=== PATIENT | male | born 1950 | race Caucasian/White ===

== ENCOUNTER → 2019-02-23 | Outpatient (CLI) | payer BC, OTHER ==
[~2019-02-23] VITALS: Ht 182.9 cm; Wt 97.5 kg
[~2019-02-23] MED LIST: ADULT LOW DOSE81 MG PO; ALTACE10 M1 PO; ALTACE5 M1 PO; AMLODIPINE BESYL5 MG PO; DOXYCYCLINE 10100 M1 PO; DOXYCYCLINE 10100 MG PO; EFFIENT10 MG PO; FLAX OIL1000 MG PO; LIPITOR40 MG PO; SIMVASTATIN40 MG PO; TELMISARTAN80 MG PO
[2019-02-23 07:37] VITALS: BP 138/72
--- NOTE | 2019-02-23 08:53 | EKG ---
[place] [address] [facility] [place] [address] ELECTROCARDIOGRAM REPORT Name: RAND CORTES [facility] [id number] ������������������ Admission: 02/23/19 ������������������ Attend Phys: Willem Shaffer MD, Discharge: ������������������ Date of : 46 Report #: [id number] ����������������������������������������������������������������� [id number] THIS REPORT FOR: //name// [facility] Test Date: 2019-02-23 Test Time: 07:40:34 Pat Name: RAND CORTES Department: Room: Gender: Outsole Scheduler: Jennifer HARPER : 1950 Requested By: Willem Shaffer Order Number: [id number] MD: Willem Shaffer Measurements Intervals [place] Rate: 55 P: 79 GA: 186 QRS: -39 QRSD: 122 T: 31 QT: 453 QTc: 434 Interpretive Statements Sinus rhythm Left bundle branch block Compared to ECG 01/17/2010 10:10:43 Left bundle-branch block now present Electronically Signed On 02-23-2019 8:53:42 CDT by Willem Shaffer [email or web address] ��������������������������������������������� <ELECTRONICALLY SIGNED> ���������������������������������������� By: Willem Shaffer MD, [facility] ��������������������������������������������� 02/23/19 0853 9 9 Willem Shaffer MD, [facility] /EPI
--- NOTE | 2019-02-23 11:36 | CATHLAB ---
[facility] [address] [place] [place] [address] INVASIVE PROCEDURE REPORT Name: RAND CORTES [facility] #: [facility] [id number] ������������� Admission: 02/23/19 ������������� Attend Phys: Willem Shaffer, Discharge: ��� ������������� ��� Date of : 46 Date of Service: 02/23/19 1136 �� Report #: [id number] �������� ��������������������������������������������[id number] THIS REPORT FOR: //name// APPROVED REPORT Study performed: 02/23/2019 09:35:43 Patient Details Patient Status: Out-Patient Room #: The patient is a 68 year-old male Event Personnel Willem Shaffer Supervisor [employer], Marquita Polanco RN, Sandie Guardado RN RN, Tish Stanton RTR, RULING MACHINE OPERATOR Monitor, Emely Root RULING MACHINE OPERATOR Scrub Procedures Performed Art Access - R femoral artery* Left Heart Cath w/or w/o Coronaries [id number] [facility] [address] Initial Mod Sed Same Phys/QHP Gr5y [id number] Indication Positive stress test Procedure Narrative The Right Groin^ was infiltrated with 1% Lidocaine subcutaneous anesthesia. A PINNACLE 6FR Sheath #[id number] sheath was inserted into the RFA^. Coronary angiography was performed using coronary diagnostic catheters. The right coronary system was accessed and visualized with a JR4 catheter. The left coronary system was accessed and visualized with a JL4 catheter. The left ventricle was accessed and visualized with a angled Pigtail catheter. Left ventricular/Aortic Valve gradient assessed via catheter pullback. Left ventriculogram was performed in 30 degree projection. Closure device was deployed with a 6 Fr MYNXGRIP 6/7F #[id number]. The patient tolerated the procedure well and there were no complications associated with the procedure. There was no hematoma. Intraoperative Conscious Sedation Sedation start time: 09:39 Case end Time: 10:08 Fentanyl 50 mcg Versed 1 mg Fluoro Time: 1.25 minutes Dose: DAP 4267.20 cGycm2 509 mGy [facility] [address] [place] [address] INVASIVE PROCEDURE REPORT Name: RAND CORTES Room #: REG [facility] [id number] ������������� Admission: 02/23/19 ������������� Attend Phys: Willem Shaffer, Discharge: ��� ������������� ��� Date of : 46 Date of Service: 02/23/19 1136 �� Report #: [id number] �������� ��������������������������������������������[id number] Contrast Type and Amount: Omnipaque 95 ml Diagnostic Cath Left Main Large, normal left main LAD Previously stented proximal to mid LAD stents, widely patent with only minimal intrastent plaquing Diagonal 1 Single large diagonal branch, angiographically normal Circumflex Dominant right coronary. Mild 30% proximal circumflex plaquing just after a large first marginal branch OM1 Large OM branch, angiographically normal OM2 Large OM 2 branch, angiographically normal L PDA Normal posterior descending off of the distal circumflex Right Coronary Small nondominant and angiographically right coronary Left Ventriculography The left ventricle is normal in size with normal contractility. The left ventricular ejection fraction is estimated to be 60-65%. Left ventricular wall motion abnormalities are not present. There is no mitral insufficiency. Hemodynamics The aortic pressure is 175/74 mmHg with a mean of 117 mmHg. The left ventricular pressure is 155/9 mmHg with a mean of mmHg. The left ventricular end diastolic pressure is 29 mmHg. Conclusion 1. Normal global and regional left ventricular systolic function. Ejection fraction 65%. 2. Normal left main 3. Previously stented proximal and mid LAD, widely patent with minimal intrastent plaquing 4. Dominant circumflex with 30% proximal stenosis otherwise angiographically normal 5. Small, nondominant right coronary, normal ��������������������������������������������� <ELECTRONICALLY SIGNED> ���������������������������������������� By: Willem Shaffer MD, FACC ��������������������������������������������� 02/23/19 1136 1136 1136 Willem Shaffer MD, FACC /INF
== END | disposition home or self-care (01) ==
LOC: CATH 06:25
DX: I25.10 Atherosclerotic heart disease of native coronary artery without angina pectoris (principal); T82.855A Stenosis of coronary artery stent, initial encounter; I10 Essential (primary) hypertension; E11.9 Type 2 diabetes mellitus without complications; E78.5 Hyperlipidemia, unspecified; E78.00 Pure hypercholesterolemia, unspecified; G62.9 Polyneuropathy, unspecified; E66.09 Other obesity due to excess calories; Z98.890 Other specified postprocedural states; Z79.899 Other long term (current) drug therapy; Z82.49 Family history of ischemic heart disease and other diseases of the circulatory system; Z95.5 Presence of coronary angioplasty implant and graft; Z88.0 Allergy status to penicillin; Z79.82 Long term (current) use of aspirin; Z79.4 Long term (current) use of insulin; Z87.891 Personal history of nicotine dependence; Z88.2 Allergy status to sulfonamides

== ENCOUNTER → 2020-02-27 | Outpatient (CLI) | payer OTHER | LOC: SJCVCIMAG 09:24 | PROVIDERS: ATTEND Internal Medicine | DX: I65.23 Occlusion and stenosis of bilateral carotid arteries (principal); I44.7 Left bundle-branch block, unspecified; R94.31 Abnormal electrocardiogram [ECG] [EKG]; I25.118 Atherosclerotic heart disease of native coronary artery with other forms of angina pectoris; I10 Essential (primary) hypertension; E78.5 Hyperlipidemia, unspecified; E78.00 Pure hypercholesterolemia, unspecified; Z79.899 Other long term (current) drug therapy; Z82.49 Family history of ischemic heart disease and other diseases of the circulatory system; Z79.82 Long term (current) use of aspirin ==

== ENCOUNTER → 2021-03-01 | Outpatient (CLI) | payer OTHER | LOC: SJCVC 09:42 | PROVIDERS: ATTEND Internal Medicine | DX: R94.31 Abnormal electrocardiogram [ECG] [EKG] (principal); I44.30 Unspecified atrioventricular block; I25.118 Atherosclerotic heart disease of native coronary artery with other forms of angina pectoris; I10 Essential (primary) hypertension; E78.5 Hyperlipidemia, unspecified; I65.23 Occlusion and stenosis of bilateral carotid arteries; Z72.89 Other problems related to lifestyle; Z79.82 Long term (current) use of aspirin; Z79.899 Other long term (current) drug therapy; Z88.2 Allergy status to sulfonamides ==

== ENCOUNTER → 2021-09-02 | Outpatient (CLI) | payer OTHER | LOC: SJCVC 10:17 | PROVIDERS: ATTEND Internal Medicine | DX: R94.31 Abnormal electrocardiogram [ECG] [EKG] (principal); I25.118 Atherosclerotic heart disease of native coronary artery with other forms of angina pectoris; I10 Essential (primary) hypertension; E78.5 Hyperlipidemia, unspecified; I65.23 Occlusion and stenosis of bilateral carotid arteries; E78.00 Pure hypercholesterolemia, unspecified; Z72.89 Other problems related to lifestyle; Z79.82 Long term (current) use of aspirin; Z79.899 Other long term (current) drug therapy ==